=== PATIENT | female | born 1960 | race Caucasian/White ===

== ENCOUNTER → 2021-12-31 | Outpatient (CLI) | payer OTHER ==
[~2021-12-31] MED LIST: CATHETER FLUSH 10 ML SYR IVP PRN; REGADENOSON 0.4 MG/5 ML SYR (LEXISCAN) IV ONE
[2021-12-31 12:48] VITALS: BP 173/97
--- NOTE | 2022-01-01 08:49 | NUCLEAR STRESS TEST ---
REGADENOSON NUCLEAR STRESS Date of procedure: 12/31/2021. Primary care provider: Brandy Noe DO Admitting physician: Demetrius Santo Jr., MD. INDICATION: Abnormal electrocardiogram. BASELINE ELECTROCARDIOGRAM: Sinus rhythm with nonspecific ST-T wave changes, inferior leads. STRESS TEST PROCEDURE: The patient was administered 0.4 mg of intravenous Regad enoson. The resting heart rate was 72 bpm and the peak heart rate was 100 bpm. The resting blood pressure was 173/97 mmHg and the minimum blood pressure was 157/99 mmHg. This represents a normal heart rate and a normal blood pressure response to Regadenoson with resting hypertension. The test was stopped due to the protocol. There was no chest discomfort during the test. There were no arrhythmias during the test. There were no significant stress induced electrocardiogram changes. NUCLEAR PROCEDURE: The patient was administered 10.3 mCi of intravenous technetium 99m Tetrofosmin at rest for the rest images. The patient was sub sequently administered 29.8 mCi of intravenous technetium 99m Tetrofosmin at peak stress for the stress images. Following an appropriate wait after each injection, imaging was obtained. The images were subsequently processed and reformatted in the usual views. Gated imaging was obtained. The image quality was adequate with a mild degree of gastrointestinal attenuation artifact. CT attenuation correction was used as a adjunct to standard imaging. Both the corrected and uncorrected images were reviewed for interpretation. NUCLEAR RESULTS: There was normal myocardial perfusion in all segments without evidence of infarction or ischemia. There was normal left ventricular chamber size with an end-diastolic volume of 70 mL and an end-systolic volume of 34 mL. There was no evidence of transient ischemic dilatation. The TID ratio was 1.16. There was normal wall motion in all segments with a calculated ejection fraction of 51%. IMPRESSION: 1. Normal heart rate and blood pressure response to regadenoson with resting hypertension. 2. There was no chest discomfort, arrhythmias, or electrocardiogram changes during the test. 3. There was normal myocardial perfusion in all segments without evidence of infarction or ischemia. 4. There was normal wall motion in all segments with a calculated ejection fraction of 51%. Certain portions of this document may have been dictated utilizing voice recognition technology. Inherent to this technology, typographical and grammatical errors may exist. As much as I am diligent to identify and correct these mistakes, some errors may remain in the document. DEMETRIUS SANTO JR, MD Jan 01, 2022 08:49
== END ==
LOC: CARD 10:30
PROVIDERS: ATTEND Internal Medicine Cardiovascular Disease
DX: I51.7 Cardiomegaly (principal)
CPT/HCPCS: 78452; 93017; 93306; A9502

== ENCOUNTER → 2022-11-16 | Outpatient (CLI) | payer OTHER ==
[2022-11-16 12:51] VITALS: BP 158/95
--- NOTE | 2022-11-17 14:20 | STRESS TEST ---
DATE OF SERVICE: 11/16/2022 RESTING AND POST REGADENOSON TECHNETIUM-99M TETROFOSMIN SPECT CT IMAGING ORDERING PHYSICIAN: Dr. Aguirre. PRIMARY PHYSICIAN: [ ]. CLINICAL DIAGNOSIS: Chest discomfort. Baseline images were carried out after injection of 10.9 mCi technetium-99m tetrofosmin. This was followed by 0.4 mg regadenoson and 31.3 mCi of technetium-99m tetrofosmin for stress imaging. The electrocardiogram showed sinus rhythm at baseline. It did not change significantly with the regadenoson infusion. The patient tolerated the procedure well. Review of images at rest and following stress does not indicate any significant perfusion defects consistent with myocardial ischemia or infarction. Gated images show normal global left ventricular systolic function with normal regional wall motion. Left ventricular ejection fraction is calculated to be 67%. CONCLUSIONS: 1. No evidence of any significant myocardial ischemia or infarction on this study. 2. Normal regional wall motion. 3. Normal global left ventricular systolic function with a calculated ejection fraction 67%. Job ID: [id number] DocumentID: [id number] Dictated Date: 11/17/2022 12:55:21 Cloth Shader Date: 11/17/2022 14:17:00 Dictated By: EVERT AGUIRRE MD; MA; FACP; FACC;
== END ==
LOC: CARD 10:52
PROVIDERS: ATTEND Internal Medicine Cardiovascular Disease
DX: R07.89 Other chest pain (principal)
CPT/HCPCS: 78452; 93017; A9502

== ENCOUNTER → 2022-11-22 | Outpatient (CLI) | payer OTHER | LOC: RT 09:15 | PROVIDERS: ATTEND Internal Medicine Cardiovascular Disease | DX: E27.9 Disorder of adrenal gland, unspecified (principal); R06.09 Other forms of dyspnea; R91.1 Solitary pulmonary nodule | CPT/HCPCS: 94060; 94726; 94729 ==

== ENCOUNTER → 2022-11-23 | Outpatient (CLI) | payer OTHER ==
[~2022-11-23] MED LIST changes: -CATHETER FLUSH 10 ML SYR IVP PRN; +HOLD METFORMIN - RECEIVED CONTRAST 20 ML VIAL IV SCH; +IOHEXOL 350 MG/ML 100 ML (OMNIPAQUE 350) VIAL IV ONE; +NS 100 ML (IVPB) BAG IV ONE; -REGADENOSON 0.4 MG/5 ML SYR (LEXISCAN) IV ONE
[2022-11-23 10:24] LABS: CREATININE SERUM 0.8 MG/DL (0.60-1.30)
--- NOTE | 2022-11-23 11:53 | Diagnostic Imaging Report ---
PROCEDURE: CT angiography of the chest with contrast. TECHNIQUE: Multiple contiguous axial images were obtained through the chest after uneventful bolus administration of intravenous contrast. 3D reconstructed CTA MIP acquisitions were also performed. Auto Exposure Controls were utilized during the CT exam to meet ALARA standards for radiation dose reduction. INDICATION: Shortness of breath. Chest tightness. COMPARISON: None. FINDINGS: This helical CT pulmonary angiogram is diagnostic to the subsegmental level branches of the pulmonary artery and demonstrates no pulmonary emboli. The heart and great vessels are unremarkable. There is no pericardial effusion. There is no axillary, mediastinal, or hilar adenopathy. A groundglass nodule is seen in the right upper lobe measuring 1.0 cm. Additional tiny groundglass nodules are seen in the right lower lobe. No focal consolidation. No central endobronchial lesion. No pleural effusion or pneumothorax. Osseous structures appear normal. A mass is seen in the left adrenal gland measuring 3.5 x 3.0 cm. A smaller lesion is seen in the right adrenal gland measuring 2.2 x 1.3 cm. IMPRESSION: 1. No acute pulmonary embolus. 2. Groundglass nodule in the right upper lobe measuring 1.0 cm with additional tiny groundglass nodules in the right lower lobe. Findings are indeterminate and follow-up in 3 months is recommended to ensure stability or resolution. 3. Mass in the left adrenal gland measuring 3.5 cm with a smaller nodule in the right adrenal gland measuring 2.2 cm. Recommend nonemergent adrenal protocol CT to further evaluate. Dictated by: Dictated on workstation # [id number]
== END ==
LOC: RAD 09:47
PROVIDERS: ATTEND Internal Medicine Cardiovascular Disease
DX: E27.8 Other specified disorders of adrenal gland (principal); R91.8 Other nonspecific abnormal finding of lung field
CPT/HCPCS: 36415; 71275; 82565; 84520